=== PATIENT | male | born 2000 | race Caucasian/White ===

== ENCOUNTER 2024-01-17 16:34 | Emergency (ER) | payer OTHER, SELFPAY ==
[2024-01-17 16:44] VITALS: BP 107/73; PULSE 55; TEMP 36.7; O2SAT 98; BMI 25.1
--- NOTE | 2024-01-17 16:58 | US_ITS ---
[address] [address] Patient Name: MICHAEL LLAMAS MRN: [id number] date: 2000 Sex: M Assigned Patient Location: ER Current Patient Location: ED.MAIN Accession/Order Number: [id number] Exam Date: 01/17/2024 17:38 Report Date: 01/17/2024 20:04 At the request of: HETAL COYNE Procedure: US right upper quadrant EXAM: US right upper quadrant HISTORY: Abdominal pain, ate 9pm last night COMPARISON: No previous ultrasound. CT abdomen pelvis 03/27/2015 TECHNIQUE: Ultrasound right upper quadrant with grayscale and limited color Doppler imaging. FINDINGS: Normal-appearing fluid-filled gallbladder without shadowing calculi, wall thickening or edema. No biliary dilatation, common duct diameter 2 mm. Patient not tender when scanned over the gallbladder. Homogeneous liver without focal lesion. Visualized pancreas right kidney unremarkable, right kidney 10.6 cm in length. No ascites or free fluid. Visualized hepatic veins, portal vein and IVC unremarkable. US/US right upper quadrant IMPRESSION: Normal right upper quadrant ultrasound. Normal-appearing gallbladder and biliary tract. Electronically authenticated by: FABIAN RAMIREZ Date: 01/17/2024 20:04
--- NOTE | 2024-01-17 16:59 | ED.ABDPAIN1 ---
HPI - Abdominal Pain General Chief Complaint: Abdominal Pain Stated Complaint: Abdominal Pain Time Seen by Provider: 01/17/24 16:47 Source: patient Mode of arrival: walk-in Limitations: no limitations History of Present Illness HPI narrative: Patient is a 23-year-old male who presents to the emergency department for the evaluation of increasing abdominal pain and decreased appetite today. He states the symptoms have been intermittent for 3 years. He states he was seen at [facility] 1 year ago and states he had a MRI of his abdomen that was unremarkable. He has not seen his doctor for over a year. He states he has had labs done per for that were unremarkable. He admits to smoking marijuana but does not believe this is causing his symptoms. He is urinating without difficulty. No fevers, upper respiratory symptoms. No previous abdominal surgeries. No medications taken prior to arrival. Related Data Previous Rx's ?Medication ?Instructions ?Recorded hyoscyamine sulfate 0.125 mg 0.125 mg PO Q6H PRN abdominal pain 01/17/24 tablet (Levsin) #12 tabs ondansetron 4 mg disintegrating 4 mg PO Q6H PRN nausea and 01/17/24 tablet vomiting #12 tabs pantoprazole 40 mg tablet,delayed 40 mg PO DAILY #7 tabs 01/17/24 release (Protonix) promethazine 25 mg tablet 25 mg PO Q6H PRN nausea and 01/17/24 vomiting #12 tabs sucralfate 1 gram tablet (Carafate) 1 g PO Q6H PRN abdominal pain #12 01/17/24 tabs Allergies Allergy/AdvReac Type Severity Reaction Status Date / Time No Known Drug Allergies Allergy Verified 01/17/24 16:44 Review of Systems ROS Constitutional Denies: fever or chills Ears, nose, mouth, and throat Denies: throat pain or nasal congestion Cardiovascular Denies: chest pain Respiratory Denies: shortness of breath Gastrointestinal Reports: abdominal pain, nausea and vomiting; Denies: diarrhea Genitourinary Denies: painful urination Musculoskeletal Denies: back pain Integumentary/Breast Denies: rash Hematologic/Lymphatic Denies: easy bruising or easy bleeding Exam Narrative Exam Narrative: Gen.: Awake, alert, in no distress Head: Normocephalic, atraumatic ENT: Moist mucous membranes Respiratory: No respiratory distress Gastrointestinal: Abdomen is soft, nondistended and tender to palpation in the epigastrium without guarding or rebound Extremities: Moves extremities equally Psych: Normal mood and affect Neuro: No focal neuro deficit Skin: Warm, dry, intact Constitutional Vital Signs, click to edit/add: Last Vital Signs Temp 98.1 F 01/17/24 16:44 Pulse 57 L 01/17/24 18:42 Resp 18 01/17/24 18:42 BP 130/79 01/17/24 18:42 Pulse Ox 99 01/17/24 18:42 O2 Del Method Room Air 01/17/24 16:44 Course Vital Signs Vital signs: Vital Signs Temperature 98.1 F 01/17/24 16:44 Pulse Rate 55 L 01/17/24 16:44 Respiratory Rate 18 01/17/24 16:44 Blood Pressure 107/73 01/17/24 16:44 Pulse Oximetry 98 01/17/24 16:44 Oxygen Delivery Method Room Air 01/17/24 16:44 Temperature 98.1 F 01/17/24 16:44 Pulse Rate 57 L 01/17/24 18:42 Respiratory Rate 18 01/17/24 18:42 Blood Pressure 130/79 01/17/24 18:42 Pulse Oximetry 99 01/17/24 18:42 Oxygen Delivery Method Room Air 01/17/24 16:44 MDM - Abdominal Pain MDM Narrative Medical decision making narrative: Was medicated with IV fluids, Levsin, Protonix, Zofran. Additional Phenergan given for nausea although the patient had no episodes of emesis in the ER and rested comfortably. Lab studies show white blood cell count 12.3, right upper quadrant ultrasound shows no evidence of acute process. Abdomen is soft and benign in the ER. Vital signs are stable. Patient discharged home with GI medications to follow-up with GI, general surgery. Return to the ER if symptoms change or worsen. SUPERVISED APC VISIT, PHYSICIAN ATTESTATION: Based on the medical record the care appears appropriate. ? Medical Records Attestation: I reviewed the patient's medical records. Lab Data Attestation: I reviewed the patient's lab results. Labs: Lab Results 01/17/24 Range/Units 16:55 WBC 12.3 H (4.0-11.0) 10^3/uL RBC 5.76 (4.70-6.10) 10^6/uL Hgb 15.1 (14.0-18.0) g/dL Hct 46.1 (42.0-54.0) % MCV 80.0 (80.0-94.0) fL MCH 26.2 (25.9-34.0) pg MCHC 32.8 (29.9-35.2) g/dL RDW 12.9 (11.0-15.0) % Plt Count 245 (150-450) 10^3/uL MPV 11.7 (9.5-13.5) fL Neut % (Auto) 91.9 H (43.0-75.0) % Lymph % (Auto) 5.9 L (20.5-60.0) % Reynolds % (Auto) 1.6 L (1.7-12.0) % Eos % (Auto) 0.1 L (0.9-7.0) % Baso % (Auto) 0.2 (0.2-2.0) % Neut # (Auto) 11.3 H (1.4-6.5) 10^3/uL Lymph # (Auto) 0.7 L (1.2-3.8) 10^3/uL Reynolds # (Auto) 0.2 L (0.3-0.8) 10^3/uL Eos # (Auto) 0.0 (0.0-0.7) 10^3/uL Baso # (Auto) 0.0 (0.0-0.1) 10^3/uL Abs Immat Gran (auto) 0.04 H (0.00-0.03) 10^3/uL Imm/Tot Granulo (auto) 0.3 (0.0-0.5) % Sodium 142 (136-145) mmol/L Potassium 3.9 (3.5-5.1) mmol/L Chloride 103 (98-107) mmol/L Carbon Dioxide 27.9 (21.0-32.0) mmol/L Anion Gap 15.0 BUN 10.0 (7.0-18.0) mg/dL Creatinine 1.07 (0.70-1.30) mg/dL Est GFR ( Amer) >60 (>=60) Est GFR (Non-Af Amer) >60 (>=60) BUN/Creatinine Ratio 9.3 Glucose 123 H (74-106) mg/dL Lactate 1.6 (0.4-2.0) mmol/L Calcium 10.1 (8.5-10.1) mg/dL Total Bilirubin 0.7 (0.2-1.0) mg/dL AST 17 (15-37) U/L ALT 21 (16-63) U/L Alkaline Phosphatase 53 (46-116) U/L Total Protein 8.2 (6.4-8.2) g/dL Albumin 4.9 (3.4-5.0) g/dL Globulin 3.3 g/dL Albumin/Globulin Ratio 1.5 Lipase 42.0 (16.0-77.0) U/L Urine Color Yellow (YELLOW) Urine Clarity Clear (CLEAR) Urine pH 7.5 (5.0-9.0) Ur Specific [place] 1.025 (1.005-1.025) Urine Protein Trace (NEG/TRACE) mg/dL Urine Glucose (UA) Negative (NEGATIVE) mg/dL Urine Ketones 40 A (NEGATIVE) mg/dL Urine Occult Blood Negative (NEGATIVE) Urine Nitrite Negative (NEGATIVE) Urine Bilirubin Negative (NEGATIVE) Urine Urobilinogen 2.0 A (0.2-1.0) EU/dL Ur Leukocyte Esterase Negative (NEGATIVE) Discharge Plan Discharge Stand Alone Forms: Portal Instructions Chief Complaint: Abdominal Pain Clinical Impression: Abdominal pain, Nausea Patient Disposition: Home, Self-Care Time of Disposition Decision: 20:10 Condition: Good Prescriptions / Home Meds: New sucralfate [Carafate] 1 gram tablet 1 g PO Q6H PRN (Reason: abdominal pain) Qty: 12 0RF pantoprazole [Protonix] 40 mg tablet,delayed release (DR/EC) 40 mg PO DAILY Qty: 7 0RF promethazine 25 mg tablet 25 mg PO Q6H PRN (Reason: nausea and vomiting) Qty: 12 0RF ondansetron 4 mg tablet,disintegrating 4 mg PO Q6H PRN (Reason: nausea and vomiting) Qty: 12 0RF hyoscyamine sulfate [Levsin] 0.125 mg tablet 0.125 mg PO Q6H PRN (Reason: abdominal pain) Qty: 12 0RF Print Language: Khmer Instructions: Acute Abdominal Pain (ED) Referrals: LEANDRO CHRISTENSEN [Physician] - 1 week Arturo Tierney MD [Physician] - 1 week Physician,Non-MD Arben [Primary Care Provider] - 1 week
[2024-01-17 17:08] LABS: Basophils Percent Auto 0.2 % (0.2-2.0); Eosinophils Percent Auto 0.1 % (0.9-7.0); Hematocrit 46.1 % (42.0-54.0); Hemoglobin 15.1 g/dL (14.0-18.0); Immature Granulocytes Abs Auto 0.04 10^3/uL (0.00-0.03); Immature Granulocytes Pct Auto 0.3 % (0.0-0.5); Lymphocytes Absolute Auto 0.7 10^3/uL (1.2-3.8); Lymphocytes Percent Auto 5.9 % (20.5-60.0); Mean Corpuscular HGB Conc 32.8 g/dL (29.9-35.2); Mean Corpuscular Hemoglobin 26.2 pg (25.9-34.0); Mean Platelet Volume 11.7 fL (9.5-13.5); Monocytes Absolute Auto 0.2 10^3/uL (0.3-0.8); Monocytes Percent Auto 1.6 % (1.7-12.0); Neutrophils Absolute Auto 11.3 10^3/uL (1.4-6.5); Neutrophils Percent Auto 91.9 % (43.0-75.0); Platelet Count 245 10^3/uL (150-450); Red Blood Count 5.76 10^6/uL (4.70-6.10); Red Cell Distribution Width 12.9 % (11.0-15.0); White Blood Count 12.3 10^3/uL (4.0-11.0)
[2024-01-17 17:11] LABS: Bilirubin Urine NEGATIVE (NEGATIVE); Blood Urine NEGATIVE (NEGATIVE); Clarity Urine CLEAR (CLEAR); Color Urine YELLOW (YELLOW); Glucose Urine UA NEGATIVE (NEGATIVE); Ketones Urine 40 mg/dL (NEGATIVE); Leukocyte Esterase Urine NEGATIVE (NEGATIVE); Nitrite Urine NEGATIVE (NEGATIVE); Protein Urine TRACE mg/dL (NEG/TRACE); Specific Gravity Urine 1.025 (1.005-1.025); pH Urine 7.5 (5.0-9.0)
[2024-01-17] MEDS: 0.9 % SODIUM CHLORIDE 1,000 ML 999 ML IV (17:12)
[2024-01-17] MEDS: ONDANSETRON PF 4 MG/2 ML VIAL IV (17:12)
[2024-01-17] MEDS: HYOSCYAMINE SULFATE 0.125 MG TAB.SUBL SL (17:13)
[2024-01-17] MEDS: PANTOPRAZOLE SODIUM 40 MG VIAL IV (17:13)
[2024-01-17 17:29] LABS: Urine Microscopic Indicated NO
[2024-01-17 17:33] LABS: Alanine Aminotransferase 21 U/L (16-63); Albumin Globulin Ratio 1.5; Albumin Level 4.9 g/dL (3.4-5.0); Alkaline Phosphatase 53 U/L (46-116); Aspartate Amino Transferase 17 U/L (15-37); BUN Creatinine Ratio 9.3; Bilirubin Total 0.7 mg/dL (0.2-1.0); Calcium 10.1 mg/dL (8.5-10.1); Carbon Dioxide 27.9 mmol/L (21.0-32.0); Chloride 103 mmol/L (98-107); Estimated GFR (African America >60 (>=60); Estimated GFR (Non-African Ame >60 (>=60); Globulin 3.3 g/dL; Glucose 123 mg/dL (74-106); Potassium 3.9 mmol/L (3.5-5.1); Sodium 142 mmol/L (136-145); Total Protein 8.2 g/dL (6.4-8.2)
[2024-01-17 17:34] LABS: Lactate/Lactic Acid 1.6 mmol/L (0.4-2.0)
[2024-01-17 18:42] VITALS: BP 130/79; PULSE 57; O2SAT 99
[2024-01-17] MEDS: PROMETHAZINE HCL 12.5 MG in 0.9 % SODIUM CHLORIDE 50 ML 202 MG IV (19:00)
--- NOTE | 2024-01-17 19:35 | PC.NURSE ---
This nurse assumed care for pt Pt resting peacefully at this time Pt and family at bedside deny further needs or questions at this time
== END 2024-01-17 20:24 | disposition home or self-care (01) ==
PROVIDERS: Physician Assistant; Emergency Provider Emergency Medicine Emergency Medical Services; Family Provider Family Medicine
DX: R10.9 Unspecified abdominal pain (principal); R11.0 Nausea
CPT/HCPCS: 36415; 76705; 80053; 81003; 83605; 83690; 85025; 96365; 96375; 99285; J2250; J2405